=== PATIENT | female | born 1980 | race Caucasian/White ===

== ENCOUNTER → 2017-06-02 | Outpatient (CLI) | payer OTHER | LOC: FIMAGING 07:55 | PROVIDERS: ATTEND Advanced Practice Midwife | DX: O34.219 Maternal care for unspecified type scar from previous cesarean delivery (principal); O09.522 Supervision of elderly multigravida, second trimester; Z3A.20 20 weeks gestation of pregnancy; Z82.79 Family history of other congenital malformations, deformations and chromosomal abnormalities ==

== ENCOUNTER 2017-10-01 | Inpatient (IN) | payer MEDICAID | END 2017-10-02 17:30 | disposition home or self-care (01) | DRG 560 | PROVIDERS: ADMIT Obstetrics & Gynecology | PROC: 0HQ9XZZ Repair Perineum Skin, External Approach (ICD-10-PCS; principal; 2017-10-01) | PROC: 10E0XZZ Delivery of Products of Conception, External Approach (ICD-10-PCS; principal; 2017-10-01) ==